=== PATIENT | male | born 1965 | race African-American/Black ===

== ENCOUNTER 2016-12-08 13:52 | Emergency (ER) | payer OTHER ==
[~2016-12-08 13:52] MED LIST: BLOOD PRESSURE PILL
== END 2016-12-08 13:55 | disposition home or self-care (01) ==
LOC: CFTX 13:52
DX: S61.213A Laceration without foreign body of left middle finger without damage to nail, initial encounter (principal); I10 Essential (primary) hypertension; W45.8XXA Other foreign body or object entering through skin, initial encounter; Y92.69 Other specified industrial and construction area as the place of occurrence of the external cause
CPT/HCPCS: 12001; 99283